=== PATIENT | male | born 1960 | race Two or more races ===

== ENCOUNTER 2025-08-02 09:31 | Inpatient (IN) | payer OTHER ==
[~2025-08-02] VITALS: Ht 182.9 cm; Wt 80.7 kg
[~2025-08-02 09:31] MED LIST: COLACE100 MG PO; DICLOFENAC POTA50 MG PO; PERCOCET 5/3251 TAB PO; SYNTHROID200 MCG PO
[2025-08-02] MEDS ORDERED: ROSUVASTATIN CAL5 MG (09:45)
[2025-08-02] MEDS ORDERED: TIROSINT13 MCG (09:46)
--- NOTE | 2025-08-02 09:50 | NUR ---
PACIENTE EN COMPANIA DE ESPOSA, SE OBSERVA ALERTA Y ORIENTDO X 3. EL MISMO REFIERE DEBLIDAD, MAREO Y PEDIDAD DE CONOCIMIENTO LUEGO DE EJERCER FUERZA EL FILIBERTO DE HOY. EL MISMO VERBALIZA QUE GUTIERREZ OCURRIDO PREVIAMENTE AL MOMENTO DE REALIZAR FUERZA O ACTIVIDAD FISICA FLOYD. SE MIDEN SIGNOS VITALES Y SE UBICA EN PASILLO
[2025-08-02] MEDS ORDERED: 0.9 % SODIUM CHLORIDE 1,000 ML IV SCH (10:30)
[2025-08-02 11:01] LABS: BASO % 0.5 % (0.1-1.2); EOS # 0.07 (0.04-0.54); EOS % 0.8 % (0.7-7.0); LYMPH # 1.33 (1.18-3.74); LYMPH % 14.6 % (19.3-53.1); MEAN PLATELET VOLUME 11.30 fl (9.4-12.4); MONO # 0.82 (0.24-0.82); MONO % 9.0 % (4.7-12.5); NEUT # 6.82 (1.56-6.13); NEUT % 74.8 % (34.0-71.1); RED CELL DISTRIBUTION WIDTH 12.5 % (11.6-14.4)
[2025-08-02 11:22] LABS: BUN CREA RATIO 19.0 (7.0-25.0); CREATININE SERUM 1.08 mg/dL (0.70-1.30); GFR 68.62; GLUCOSE FASTING 102.0 mg/dL (65-100); OSMOLALITY SERUM 284.0 MOSM/KG (275-295)
--- NOTE | 2025-08-02 11:36 | NUR ---
SE ORIENTA A PACIENTE SOBRE TRATAMIENTO MEDICO, REFIERE ENTENDER. SE COLECTAN MUESTRAS DE LABORATORIO Y SE CANALIZA A PACIENTE BAJO MEDIDAS ASEPTICAS. SE COLOCA IVF'S APRIL ORDEN MEDICA. SE CONECTA PACIENTE A MONITOR CARDIACO Y OXIMETRIA DE PULSO CONTINUA. SE ENTREGA ENVASE PARA U/A. SE NOTIFICA X-RAYS Y ABG'S.
[2025-08-02 11:38] LABS: URINE APPEARANCE Clear; URINE BILIRRUBIN Negative (NEGATIVE); URINE BLOOD Negative; URINE COLOR Yellow; URINE GLUCOSE Negative (NEGATIVE); URINE KETONE Trace (NEGATIVE); URINE LEUKOCYTE Negative; URINE NITRATE Negative; URINE PROTEIN Trace (NEGATIVE); URINE UROBILINOGEN 0.2 E.U./dl
[2025-08-02 11:42] LABS: URINE BACTERIA 13.2 uL (0.0-1933); URINE CAST 0.87 uL (0.0-1.40); URINE EPITHELIAL CELLS 5.5 uL (0.0-38.8); URINE RBC 11.1 uL (0.0-20.8); URINE WBC 7.3 uL (0.0-23.2)
[2025-08-02 12:02] LABS: COCAINE NEGATIVE (NEGATIVE); METHADONE NEGATIVE (NEGATIVE); OPIATES NEGATIVE (NEGATIVE); THC ( Cannabinoids) NEGATIVE (NEGATIVE)
[2025-08-02] MEDS ORDERED: ASPIRIN 81 MG TABLET.EC PO SCH (15:51)
[2025-08-02] MEDS ORDERED: ONDANSETRON HCL 4 MG in 0.9 % SODIUM CHLORIDE 50 ML IV PRN (16:00)
[2025-08-02] MEDS ORDERED: ACETAMINOPHEN 325 MG TABLET PO PRN (16:00)
[2025-08-02] MEDS ORDERED: ACETAMINOPHEN 500 MG GEL..CAP PO PRN (16:15)
[2025-08-02 16:25] VITALS: BP 100/70
[2025-08-02] MEDS ORDERED: ROSUVASTATIN CALCIUM 20 MG TABLET PO SCH (17:00)
[2025-08-02] MEDS ORDERED: TEMAZEPAM 15 MG CAPSULE PO SCH (21:00)
[2025-08-02 23:00] VITALS: BP 125/73; O2SAT 95
[2025-08-03] MEDS ORDERED: LEVOTHYROXINE SODIUM 150 MCG TABLET PO SCH (06:00)
[2025-08-03 07:43] LABS: CHOL HDL RATIO 2.7 (0-5.0); HDL 58.0 mg/dl (40-60); LDL 82.0 mg/dl (0-130); VLDL 19.0 (0-39)
[2025-08-03 07:44] LABS: TSH 0.178 uIU/mL (0.358-3.74)
[2025-08-03 08:51] VITALS: BP 138/80; O2SAT 100
[2025-08-03 14:41] VITALS: BP 136/82
[2025-08-03 16:09] VITALS: O2SAT 96
[2025-08-03 17:37] VITALS: BP 130/75
[2025-08-03 20:36] VITALS: O2SAT 97
[2025-08-04 02:44] VITALS: BP 118/78; O2SAT 93
[2025-08-04 05:05] VITALS: O2SAT 93
[2025-08-04 09:18] VITALS: O2SAT 92
[2025-08-04 09:59] VITALS: BP 130/76; O2SAT 97
== END 2025-08-04 13:03 | disposition home or self-care (01) | DRG 69 ==
LOC: ER 09:31 → SEC-K 16:02 → MEDJ 08-03 13:39
PROVIDERS: General Practice; ADMIT Internal Medicine; ATTEND Internal Medicine
PROC: BW28ZZZ Computerized Tomography (CT Scan) of Head (ICD-10-PCS; principal; 2025-08-02)
PROC: B030ZZZ Magnetic Resonance Imaging (MRI) of Brain (ICD-10-PCS; 2025-08-02)
PROC: B345ZZZ Ultrasonography of Bilateral Common Carotid Arteries (ICD-10-PCS; 2025-08-02)
PROC: B246ZZZ Ultrasonography of Right and Left Heart (ICD-10-PCS; 2025-08-02)
PROC: 4A12X4Z Monitoring of Cardiac Electrical Activity, External Approach (ICD-10-PCS; 2025-08-03)
DX: G45.9 Transient cerebral ischemic attack, unspecified (principal); R55 Syncope and collapse; E78.49 Other hyperlipidemia
CPT/HCPCS: 70551